=== PATIENT | female | born 1965 ===

== ENCOUNTER 2024-12-24 06:25 | Day surgery (SDC) | payer OTHER, SELFPAY ==
[2024-12-24 13:11] VITALS: BP 153/94
[2024-12-24 13:14] VITALS: BMI 20.4
[2024-12-24 13:15] VITALS: BMI 20.4
[2024-12-24 15:26] VITALS: BP 117/74
[2024-12-24 15:45] VITALS: BP 139/87
== END 2024-12-24 16:00 | disposition home or self-care (01) ==
LOC: GI 06:25
PROVIDERS: ATTENDING PHYSICIAN Internal Medicine Gastroenterology
DX: K57.10 Diverticulosis of small intestine without perforation or abscess without bleeding (principal); K86.9 Disease of pancreas, unspecified; K83.8 Other specified diseases of biliary tract
CPT/HCPCS: 43237